=== PATIENT | male | born 1980 | race Two or more races ===

== ENCOUNTER 2020-07-05 10:31 | Emergency (ER) | payer SELFPAY ==
[~2020-07-05] VITALS: Ht 172.7 cm; Wt 97.2 kg
[2020-07-05] MEDS ORDERED: CIPR500T94 PO (11:52)
[2020-07-05] MEDS ORDERED: NEOM10DR32 EACH EAR (11:52)
--- NOTE | 2020-07-05 11:57 | PHYS DOC ---
Past Medical History Past Medical History: No Pertinent History Past Surgical History: No Surgical History Smoking Status: Never Smoker Alcohol Use: Occasionally Drug Use: Marijuana (occasionally) General Adult EDM: Chief Complaint: EARACHE/EAR PAIN HPI: HPI: Patient is a 40 year old male, accompanied by his , who presents to the emergency department with complaints of bilateral ear pain for the last 3 to 4 days. He denies any drainage or bleeding from his ears. Patient reports that his hearing in his right ear is diminished. He denies any cough, fever, body aches, sore throat, shortness of breath, nausea, vomiting, diarrhea, or abdominal pain. Patient currently rates his pain a 10 out of 10 on the pain scale, he is tried ibie-hoc-piteqth eardrops with no relief in his symptoms. He denies any radiation of the pain. Review of Systems: Review of Systems: Constitutional: Denies fever or chills. [] Eyes: Denies complaints HENT: Denies nasal congestion or sore throat; see HPI. [] Respiratory: Denies cough or shortness of breath. [] GI: Denies abdominal pain, nausea, or vomiting Musculoskeletal: Denies back pain or joint pain. [] Integument: Denies rash. [] Neurologic: Denies headache Psychiatric: Denies depression or anxiety. [] Heart Score: Risk Factors: Risk Factors: DM, Current or recent (<one month) smoker, HTN, HLP, family history of CAD, obesity. Risk Scores: Score 0 - 3: 2.5% MACE over next 6 weeks - Discharge Home Score 4 - 6: 20.3% MACE over next 6 weeks - Admit for Clinical Observation Score 7 - 10: 72.7% MACE over next 6 weeks - Early Invasive Strategies Physical Exam: PE: Constitutional: Well developed, well nourished, no acute distress, non-toxic appearance, obese. [] HENT: Normocephalic, atraumatic, posterior pharynx normal, nose normal, no mastoid tenderness/erythema/edema; right external ear canal with diffuse erythema and edema, unable to visualize TM, cloudy drainage; left external ear canal with mild edema, erythema, no drainage; L TM appears infected without visible perforation. [] Eyes: PERRLA, EOMI, conjunctiva normal, no discharge. [] Neck: Normal range of motion, no stridor. [] Cardiovascular:Heart rate regular rhythm Lungs & Thorax: Respirations even and unlabored, no retractions, no respiratory distress Skin: Warm, dry, no rash. [] Extremities: No cyanosis, ROM intact, no edema. [] Neurologic: Alert and oriented X 3, no focal deficits noted. [] Psychologic: Affect normal, judgement normal, mood normal. [] EKG: EKG: [] Radiology/Procedures: Radiology/Procedures: An ear wick was inserted into the right ear by myself, and then Polytrim ophthalmic solution was placed into the left ear canal by myself. No complications patient tolerated procedure well. [] Course & Med Decision Making: Course & Med Decision Making Pertinent Labs and Imaging studies reviewed. (See chart for details) [] Dragon Disclaimer: Dragon Disclaimer: This electronic medical record was generated, in whole or in part, using a voice recognition dictation system. Departure Departure Impression: Primary Impression: Otitis externa of both ears Qualified Codes: H60.313 - Diffuse otitis externa, bilateral Additional Impression: Suppurative otitis media of left ear without rupture of tympanic membrane Disposition: HOME, SELF-CARE Condition: STABLE Referrals: NO PCP (PCP) Patient Instructions: Otitis Externa, [id number]-[id number], Otitis Media, Adult, Rkvz-[id number] Additional Instructions: Fill the prescription(s) and use as directed. Alternate Tylenol and ibuprofen as needed for fever. Follow-up with your primary care doctor in one to 2 days to have the ears rechecked, return to the ER if symptoms worsen or fever develops. [facility] [address] [place] [address] [facility] [address] [place] [address] [facility] [address] [facility] [place] [address] [facility] [address] [place] [address] [facility] [address] [place] [address] [facility] [address] [place] [address] [facility] [address] [place] [address] [facility] [address] [place] [address] [facility] [address] [place] [address] [facility] [address] [place] [address] Scripts Ciprofloxacin Hcl (CIPRO) 500 Mg Tablet 1 TAB PO BID for 10 Days, #20 TAB 0 Refills avoid strenuous activity while taking this medication due to risk of tendon rupture. Prov: SAVANAH WHITTEN APRN 07/05/20 Neomycin/Polymyxin B Sulf/Hc (QCRHLDZO-[id number]-JB EAR SUSP) 10 Ml Drops.susp 4 DROP EACH EAR TID for 5 Days, #10 ML 0 Refills Prov: SAVANAH WHITTEN APRN 07/05/20 Justicifation of Admission Dx: Justifications for Admission: Justification of Admission Dx: N/A SAVANAH WHITTEN APRN Jul 05, 2020 11:57
[2020-07-05 12:45] VITALS: BP 159/91
[2020-07-05] MEDS ORDERED: HYDROcodone/APAP 5/325MG 1 TAB TABLET PO ONE (12:45)
[2020-07-05] MEDS ORDERED: POLYMYXIN/TRIMETHOPRIM OPHTH SOLUTION 10ML BOTTLE. OD ONE (12:45)
== END 2020-07-05 12:45 | disposition home or self-care (01) ==
LOC: EDBD 10:31 → ER 10:31
DX: H60.313 Diffuse otitis externa, bilateral (principal); H66.42 Suppurative otitis media, unspecified, left ear
CPT/HCPCS: 99283